=== PATIENT | female | born 1995 | race African-American/Black ===

== ENCOUNTER 2019-04-17 13:43 | Emergency (ER) | payer OTHER ==
[~2019-04-17] VITALS: Ht 149.9 cm; Wt 45.4 kg
[~2019-04-17 13:43] MED LIST: FLAGYL500 MG PO; KEFLEX500 MG PO; NOHOMEMEDICATIONS; ZOFRAN ODT4 MG PO; ZOFRAN4 MG PO
[2019-04-17 14:08] LABS: URINE BILIRUBIN NEGATIVE (Negative); URINE BLOOD 1+ (Negative); URINE CLARITY CLEAR; URINE COLOR YELLOW; URINE GLUCOSE-RANDOM* NEGATIVE (Negative); URINE KETONES NEGATIVE (Negative); URINE LEUKOCYTES-REFLEX NEGATIVE (Negative); URINE NITRITE-REFLEX NEGATIVE (Negative); URINE PROTEIN (DIPSTICK) NEGATIVE (Negative); URINE SPECIFIC GRAVITY >= 1.030 (1.005-1.035); URINE UROBILINOGEN 0.2 E.U./dl (0.2-1.0)
[2019-04-17 14:17] LABS: SQUAMOUS 0-3 Few /LPF (0-3)
[2019-04-17 14:18] LABS: BACTERIA-REFLEX 1-9 Few /HPF (None Seen); CASTS None Seen /LPF (None Seen); CRYSTALS None Seen /LPF (None Seen); URINE RBC 0-2 Rare /HPF (0-2)
[2019-04-17 14:18] LABS: ABSOLUTE NEUTROPHILS 3.5 thou/uL (1.4-8.2); BASOPHILS 0.4 % (0.0-2.0); EOSINOPHILS 0.1 % (0.0-3.0); HEMATOCRIT 40.6 % (37.0-47.0); HEMOGLOBIN 13.4 gm/dL (12.0-15.0); LYMPHOCYTES 27.2 % (24.0-44.0); MCH 31.4 pg (26.0-34.0); MCHC 33.2 g/dL (28.0-37.0); MCV 94.8 fL (80.0-100.0); MONOCYTES 6.7 % (1.0-8.0); PLATELET COUNT 257 thou/uL (150-400); POLYS 65.6 % (36.0-66.0); RBC 4.28 mil/uL (4.20-5.00); RDW 13.2 % (10.5-14.5); WBC 5.4 thou/uL (4.0-11.0)
[2019-04-17 14:19] LABS: URINE WBC-REFLEX None Seen /HPF (0-5)
[2019-04-17 14:26] LABS: CALCIUM 9.1 mg/dL (8.5-10.1); CREATININE 0.7 mg/dL (0.6-1.0)
[2019-04-17 14:27] LABS: POTASSIUM 2.9 mmol/L (3.5-5.1)
[2019-04-17 14:32] LABS: ALBUMIN 3.9 g/dL (3.4-5.0); TOTAL BILIRUBIN 0.9 mg/dL (<0.1-1.0); TOTAL PROTEIN 7.8 g/dL (6.4-8.2)
[2019-04-17] MEDS ORDERED: POTASSIUM20 PO (16:19)
[2019-04-17] MEDS ORDERED: UNISOM SLEEP AI25 MG PO (16:19)
[2019-04-17 16:34] VITALS: BP 104/62
== END 2019-04-17 16:36 | disposition home or self-care (01) ==
LOC: ER 13:43
PROVIDERS: Nurse Practitioner Family
DX: O21.9 Vomiting of pregnancy, unspecified (principal); E87.6 Hypokalemia; Z91.040 Latex allergy status

== ENCOUNTER 2019-04-24 21:20 | Emergency (ER) | payer OTHER ==
[~2019-04-24] VITALS: Ht 149.9 cm; Wt 45.4 kg
[~2019-04-24 21:20] MED LIST changes: +POTASSIUM20 PO; +UNISOM SLEEP AI25 MG PO
[2019-04-24 22:34] LABS: ABSOLUTE NEUTROPHILS 5.9 thou/uL (1.4-8.2); BASOPHILS 0.4 % (0.0-2.0); HEMATOCRIT 40.1 % (37.0-47.0); HEMOGLOBIN 13.2 gm/dL (12.0-15.0); LYMPHOCYTES 3.2 % (24.0-44.0); MCHC 32.9 g/dL (28.0-37.0); MCV 94.4 fL (80.0-100.0); MONOCYTES 6.6 % (1.0-8.0); PLATELET COUNT 243 thou/uL (150-400); POLYS 89.8 % (36.0-66.0); RBC 4.25 mil/uL (4.20-5.00); WBC 6.6 thou/uL (4.0-11.0)
[2019-04-24 22:41] LABS: CALCIUM 9.3 mg/dL (8.5-10.1); CREATININE 0.7 mg/dL (0.6-1.0); POTASSIUM 3.4 mmol/L (3.5-5.1)
[2019-04-24 22:47] LABS: ALBUMIN 3.9 g/dL (3.4-5.0); DIRECT BILIRUBIN 0.1 mg/dL (<0.1-0.2); TOTAL BILIRUBIN 0.5 mg/dL (<0.1-1.0)
[2019-04-24 23:42] LABS: URINE BILIRUBIN NEGATIVE (Negative); URINE BLOOD TRACE (Negative); URINE CLARITY CLEAR; URINE COLOR YELLOW; URINE GLUCOSE-RANDOM* NEGATIVE (Negative); URINE KETONES 3+ (Negative); URINE LEUKOCYTES-REFLEX NEGATIVE (Negative); URINE NITRITE-REFLEX NEGATIVE (Negative); URINE PROTEIN (DIPSTICK) NEGATIVE (Negative); URINE SPECIFIC GRAVITY 1.025 (1.005-1.035); URINE UROBILINOGEN 0.2 E.U./dl (0.2-1.0)
[2019-04-24] MEDS ORDERED: REGLAN 10 MG TA10 MG PO (23:58)
[2019-04-24] MEDS ORDERED: PRENATAL COMPL1 EACH PO (23:58)
[2019-04-25 00:10] VITALS: BP 111/61
== END 2019-04-25 00:18 | disposition home or self-care (01) ==
LOC: ER 21:20
PROVIDERS: Emergency Medicine
DX: O21.9 Vomiting of pregnancy, unspecified (principal); O26.851 Spotting complicating pregnancy, first trimester; O26.891 Other specified pregnancy related conditions, first trimester; R51 Headache; R10.31 Right lower quadrant pain; Z3A.08 8 weeks gestation of pregnancy

== ENCOUNTER 2019-10-23 12:01 | Emergency (ER) | payer OTHER ==
[~2019-10-23] VITALS: Ht 149.9 cm; Wt 45.4 kg
[~2019-10-23 12:01] MED LIST changes: +PRENATAL COMPL1 EACH PO; +REGLAN 10 MG TA10 MG PO
[2019-10-23 12:03] VITALS: BP 128/80
[2019-10-23 12:28] LABS: URINE BILIRUBIN NEGATIVE (Negative); URINE BLOOD NEGATIVE (Negative); URINE CLARITY CLEAR; URINE COLOR YELLOW; URINE GLUCOSE-RANDOM* NEGATIVE (Negative); URINE KETONES NEGATIVE (Negative); URINE LEUKOCYTES-REFLEX NEGATIVE (Negative); URINE NITRITE-REFLEX NEGATIVE (Negative); URINE PROTEIN (DIPSTICK) NEGATIVE (Negative); URINE SPECIFIC GRAVITY 1.015 (1.005-1.035)
[2019-10-23 12:43] LABS: SSA (PROTEIN CONFIRMATORY) NEGATIVE (Negative)
== END 2019-10-23 13:00 ==
LOC: ER 12:01
PROVIDERS: Physician Assistant
DX: R30.0 Dysuria (principal); N76.89 Other specified inflammation of vagina and vulva; Z91.040 Latex allergy status

== ENCOUNTER 2019-12-12 18:52 | Emergency (ER) | payer OTHER ==
[~2019-12-12] VITALS: Ht 149.9 cm; Wt 45.4 kg
[2019-12-12 19:28] LABS: URINE BILIRUBIN NEGATIVE (Negative); URINE BLOOD 1+ (Negative); URINE CLARITY CLEAR; URINE COLOR YELLOW; URINE GLUCOSE-RANDOM* NEGATIVE (Negative); URINE KETONES 3+ (Negative); URINE LEUKOCYTES-REFLEX NEGATIVE (Negative); URINE NITRITE-REFLEX NEGATIVE (Negative); URINE PROTEIN (DIPSTICK) 1+ (Negative); URINE UROBILINOGEN 0.2 E.U./dl (0.2-1.0)
[2019-12-12 19:42] LABS: SQUAMOUS >10 Many /LPF (0-3)
[2019-12-12 19:43] LABS: BACTERIA-REFLEX 1-9 Few /HPF (None Seen); CASTS None Seen /LPF (None Seen); CRYSTALS None Seen /LPF (None Seen); MUCUS >6 Heavy strn/LPF (None Seen); URINE RBC 0-2 Rare /HPF (0-2); URINE WBC-REFLEX 0-5 Rare /HPF (0-5)
[2019-12-12 20:00] LABS: ABSOLUTE NEUTROPHILS 6.3 thou/uL (1.4-8.2); BASOPHILS 0.4 % (0.0-2.0); EOSINOPHILS 0.6 % (0.0-3.0); HEMATOCRIT 40.1 % (37.0-47.0); HEMOGLOBIN 13.4 gm/dL (12.0-15.0); LYMPHOCYTES 7.1 % (24.0-44.0); MCH 31.3 pg (26.0-34.0); MCHC 33.5 g/dL (28.0-37.0); MCV 93.3 fL (80.0-100.0); MONOCYTES 4.3 % (1.0-8.0); PLATELET COUNT 300 thou/uL (150-400); POLYS 87.6 % (36.0-66.0); RDW 12.7 % (10.5-14.5); WBC 7.2 thou/uL (4.0-11.0)
[2019-12-12 20:08] LABS: CALCIUM 9.7 mg/dL (8.5-10.1); CREATININE 0.8 mg/dL (0.6-1.0); POTASSIUM 3.7 mmol/L (3.5-5.1)
[2019-12-12] MEDS ORDERED: VITAMIN B-625 MG PO (21:26)
[2019-12-12 21:34] VITALS: BP 111/69
== END 2019-12-12 22:06 | disposition home or self-care (01) ==
LOC: ER 18:52
PROVIDERS: Emergency Medicine
DX: O21.8 Other vomiting complicating pregnancy (principal); O26.891 Other specified pregnancy related conditions, first trimester; N76.0 Acute vaginitis; Z91.040 Latex allergy status; Z3A.01 Less than 8 weeks gestation of pregnancy